=== PATIENT | male | born 1965 | race Caucasian/White ===

== ENCOUNTER 2016-09-19 18:53 | Emergency (ER) | payer SELFPAY ==
[~2016-09-19] VITALS: Ht 180.3 cm; Wt 72.6 kg
[2016-09-19 19:45] VITALS: BP 116/70
[2016-09-19] MEDS ORDERED: FLUORESCEIN SOD 1 MG TEST STRIP RIGHTEYE ONE (20:00)
[2016-09-19] MEDS ORDERED: TETRACAINE HCL 0.5% OPTH(EYE) SOLN 4ML RIGHTEYE ONE (20:00)
== END 2016-09-19 20:50 | disposition home or self-care (01) ==
LOC: ER 18:56
DX: T15.01XA Foreign body in cornea, right eye, initial encounter (principal); X58.XXXA Exposure to other specified factors, initial encounter; Y93.89 Activity, other specified; Y99.8 Other external cause status; Y92.89 Other specified places as the place of occurrence of the external cause
CPT/HCPCS: 65220

== ENCOUNTER 2017-02-10 07:18 | Inpatient (IN) | payer SELFPAY ==
[~2017-02-10] VITALS: Ht 180.3 cm; Wt 75.1 kg
[2017-02-10] MEDS ORDERED: SODIUM CHLORIDE 0.9% 1,000 ML IV ONE (07:37)
[2017-02-10] MEDS ORDERED: ASPirin 81 mg TAB PO ONE (07:45)
[2017-02-10] MEDS ORDERED: METOCLOPRAMIDE HCL 5MG/ml INJ 2ml VIAL IV ONE (07:45)
[2017-02-10] MEDS ORDERED: KETOROLAC TROMETH 30 MG/ML 1ML VIAL IV ONE (07:45)
[2017-02-10 08:35] LABS: Basophils # (auto) 0.1 uL; Basophils % (auto) 0.6 % (0.0-2.0); Eosinophils # (auto) 0.4 uL; Eosinophils % (auto) 4.3 % (0.0-7.0); Hematocrit 40.5 % (41.0-53.0); Hemoglobin 13.6 g/dL (13.5-17.5); Lymphocytes # (auto) 1.4 uL; Lymphocytes % (auto) 15.1 % (10.0-50.0); Mean Corpuscular Hemoglobin 31.5 pg (28.0-32.0); Mean Corpuscular Hgb Conc. 33.6 g/dL (32.0-36.0); Mean Corpuscular Volume 93.9 fL (80.0-100.0); Mean Platelet Volume 7.1 fL (6.9-10.8); Monocytes # (auto) 1.4 uL; Neutrophils # (auto) 6.2 uL; Nucleated Red Blood Cells % 0.1 %; Platelet Count (auto) 316 10^3/uL (140-450); Red Cell Distribution Width 14.2 % (11.8-14.3); White Blood Cell 9.5 10^3/uL (4.4-10.8)
[2017-02-10 09:05] LABS: Albumin 3.7 g/dL (3.4-5.0); Alkaline Phosphatase 70 U/L (45-117); Anion Gap 6 (5-15); Aspartate Aminotransferase 16 U/L (15-37); BUN/Creatinine Ratio 19.2; Bilirubin, Total 1.1 mg/dL (0.2-1.0); Blood Urea Nitrogen 14 mg/dL (7-18); Calcium 8.2 mg/dL (8.5-10.1); Carbon Dioxide 24 mmol/L (21-32); Chloride 109 mmol/L (98-107); GFR African American 145 mL/min; GFR Non-African American 120 mL/min; Glucose 96 mg/dL (74-106); Magnesium 2.2 mg/dL (1.6-2.6); Potassium 3.9 mmol/L (3.5-5.1); Sodium 139 mmol/L (136-145); Total Protein 7.1 g/dL (6.4-8.2)
[2017-02-10] MEDS ORDERED: MORPHINE SULF INJ 2 MG/ML SYRINGE 1ML IV PRN (11:15)
[2017-02-10] MEDS ORDERED: AZITHROMYCIN 500MG/D5W 250ML 250 ML IV ONE (11:15)
[2017-02-10] MEDS ORDERED: NICOTINE 14 MG/24HR TOPICAL PATCH TD ONE (11:15)
[2017-02-10] MEDS ORDERED: ACETAMINOPHEN 325 MG TAB PO PRN (11:15)
[2017-02-10] MEDS ORDERED: DOCUSATE SOD 100 MG CAP PO PRN (11:15)
[2017-02-10] MEDS ORDERED: NITROGLYCERIN 0.4 MG SL TAB SL PRN (11:15)
[2017-02-10] MEDS ORDERED: ONDANSETRON HCL 4 MG/2 ML VIAL IV PRN (11:15)
[2017-02-10] MEDS ORDERED: TEMAZEPAM 15 MG CAP PO PRN (11:15)
[2017-02-10] MEDS ORDERED: cefTRIAXone 1GM/50ML D5W 50 ML IV ONE (11:15)
[2017-02-10] MEDS: cefTRIAXone 1GM/50ML D5W 50 ML IV SCH (11:16)
[2017-02-10 11:21] LABS: B-Type Natriuretic Peptide 13.23 pg/mL (0-100)
[2017-02-10 11:25] LABS: Temperature: 21.9 C (20.0-25.0)
[2017-02-10] MEDS ORDERED: FAMOTIDINE 20 MG TAB PO ONE (11:30)
[2017-02-10] MEDS ORDERED: MULTIPLE VITAMIN TAB PO ONE (11:30)
[2017-02-10] MEDS: IPRATROPIUM BROM 0.5 MG/2.5ML INH SOL NEB SCH ×2 (11:39→18:15)
[2017-02-10] MEDS: ALBUTEROL SULF 2.5 MG/0.5ML(0.5%) NEB SOLN NEB SCH ×2 (11:39→18:15)
[2017-02-10 11:46] VITALS: BP 110/74
[2017-02-10 11:52] LABS: Urine RBC None Seen /hpf (0 - 3)
[2017-02-10 12:00] LABS: Urine Bilirubin Negative (Negative); Urine Blood Negative /uL (Negative); Urine Color Yellow (Yellow); Urine Glucose Normal (Normal); Urine Ketone Negative (Negative); Urine Nitrite Negative (Negative); Urine Urobilinogen Normal (Negative); Urine pH 5.5 (5.0-8.0)
[2017-02-10] MEDS: SODIUM CHLOR 0.9% PF (SALINE LOCK) 10ML VIAL IV SCH ×2 (13:26→20:43)
[2017-02-10] MEDS: HYDROcodone-ACET 5/325MG TAB PO PRN ×2 (17:01→20:37)
[2017-02-10] MEDS: MORPHINE SULF INJ 2 MG/ML SYRINGE 1ML IV PRN ×2 (19:54→20:38)
[2017-02-10] MEDS: FAMOTIDINE 20 MG TAB PO SCH (20:45)
[2017-02-10 22:00] VITALS: BP 140/85
[2017-02-10 22:15] VITALS: BP 140/85
[2017-02-11 05:00] VITALS: BP 124/86
[2017-02-11] MEDS: SODIUM CHLOR 0.9% PF (SALINE LOCK) 10ML VIAL IV SCH ×2 (05:31→10:00)
[2017-02-11 06:14] LABS: Basophils # (auto) 0.1 uL; Basophils % (auto) 0.7 % (0.0-2.0); Eosinophils # (auto) 0.1 uL; Eosinophils % (auto) 1.2 % (0.0-7.0); Hematocrit 38.7 % (41.0-53.0); Lymphocytes # (auto) 1.3 uL; Lymphocytes % (auto) 11.2 % (10.0-50.0); Mean Corpuscular Hemoglobin 31.4 pg (28.0-32.0); Mean Corpuscular Hgb Conc. 33.7 g/dL (32.0-36.0); Mean Corpuscular Volume 93.2 fL (80.0-100.0); Monocytes # (auto) 1.8 uL; Monocytes % (auto) 15.3 % (0.0-12.0); Neutrophils # (auto) 8.5 uL; Neutrophils % (auto) 71.6 % (37.0-80.0); Platelet Count (auto) 287 10^3/uL (140-450)
[2017-02-11 07:08] LABS: Albumin 3.3 g/dL (3.4-5.0); BUN/Creatinine Ratio 14.9; Bilirubin, Total 0.9 mg/dL (0.2-1.0); Calcium 8.6 mg/dL (8.5-10.1); Potassium 4.2 mmol/L (3.5-5.1)
[2017-02-11] MEDS: ALBUTEROL SULF 2.5 MG/0.5ML(0.5%) NEB SOLN NEB SCH ×3 (07:29→12:54)
[2017-02-11] MEDS: IPRATROPIUM BROM 0.5 MG/2.5ML INH SOL NEB SCH ×3 (07:29→12:54)
[2017-02-11 08:00] VITALS: BP 135/74
[2017-02-11 09:00] VITALS: BP 135/74
[2017-02-11] MEDS: FAMOTIDINE 20 MG TAB PO SCH (09:37)
[2017-02-11] MEDS: cefTRIAXone 1GM/50ML D5W 50 ML IV SCH (09:38)
[2017-02-11] MEDS ORDERED: MULTIPLE VITAMIN TAB PO SCH (10:00)
[2017-02-11] MEDS ORDERED: AZITHROMYCIN 500MG/D5W 250ML 250 ML IV SCH (10:00)
[2017-02-11] MEDS: HYDROcodone-ACET 5/325MG TAB PO PRN (11:06)
[2017-02-11] MEDS ORDERED: ALBUAER3 IN (11:27)
[2017-02-11] MEDS ORDERED: DOXY-216 PO (11:27)
[2017-02-11 12:10] VITALS: BP 135/74
== END 2017-02-11 14:20 | disposition home or self-care (01) | DRG 202 ==
LOC: ER 07:18 → EDUNIT# 07:18 → TELE 07:19 → TELE-CENTR 21:53
PROVIDERS: ADMIT Internal Medicine; ATTEND Internal Medicine
DX: J20.9 Acute bronchitis, unspecified (principal); J45.901 Unspecified asthma with (acute) exacerbation; E83.51 Hypocalcemia; D63.8 Anemia in other chronic diseases classified elsewhere; F17.210 Nicotine dependence, cigarettes, uncomplicated; R07.89 Other chest pain; R06.03 Acute respiratory distress; I20.9 Angina pectoris, unspecified
CPT/HCPCS: 36415; 71020; 80053; 80307; 81001; 83605; 83735; 83880; 84443; 84484; 85025; 85379; 87040; 93005; 94640; 96361; 96365; 96375; J0696; J1885; J2405

== ENCOUNTER 2021-10-29 18:12 | Emergency (ER) | payer MEDICAID, OTHER ==
[~2021-10-29] VITALS: Ht 180.3 cm; Wt 69.2 kg
[~2021-10-29 18:12] MED LIST: ALBUAER3 IN; DOXY-286 PO
[2021-10-29 18:15] VITALS: BP 129/79
[2021-10-29 18:42] LABS: Basophils # (auto) 0 10 ^3/uL (0-0.2); Basophils % (auto) 0.2 % (0.0-2.0); Eosinophils # (auto) 0.5 10 ^3/uL (0-0.8); Hematocrit 37.6 % (41.0-53.0); Hemoglobin 12.7 g/dL (13.5-17.5); Lymphocytes # (auto) 1.7 10 ^3/uL (0.4-5.4); Lymphocytes % (auto) 28.9 % (10.0-50.0); Mean Corpuscular Hemoglobin 30.5 pg (28.0-32.0); Mean Corpuscular Hgb Conc. 33.6 g/dL (32.0-36.0); Mean Corpuscular Volume 90.7 fL (80.0-100.0); Monocytes # (auto) 0.6 10 ^3/uL (0-1.3); Monocytes % (auto) 11.2 % (0.0-12.0); Neutrophils % (auto) 51.7 % (37.0-80.0); Red Blood Cells 4.15 10^6/uL (4.5-5.90); Red Cell Distribution Width 14.2 % (11.8-14.3); White Blood Cell 5.7 10^3/uL (4.4-10.8)
[2021-10-29 18:59] LABS: Albumin 3.8 g/dL (3.4-5.0); Calcium 9.2 mg/dL (8.5-10.1); Potassium 3.7 mmol/L (3.5-5.1)
[2021-10-29 19:02] LABS: BUN/Creatinine Ratio 24.8
[2021-10-29 19:05] LABS: Bilirubin, Total 0.9 mg/dL (0.2-1.0); Total Protein 7.3 g/dL (6.4-8.2)
[2021-10-29] MEDS ORDERED: KETOROLAC TROMETH 30 MG/ML 1ML VIAL IM ONE (21:00)
[2021-10-29] MEDS ORDERED: IOHEXOL 300 MG/ML 100ML BOTTLE IJ ONE (22:10)
== END 2021-10-29 23:16 | disposition home or self-care (01) ==
LOC: ER 18:12
DX: N39.0 Urinary tract infection, site not specified (principal); F17.200 Nicotine dependence, unspecified, uncomplicated
CPT/HCPCS: 36415; 74177; 80053; 83605; 83690; 85025; 93005; 96372; 99285; J1885; Q9967

== ENCOUNTER 2022-01-10 13:04 | Emergency (ER) | payer OTHER ==
[~2022-01-10] VITALS: Ht 180.3 cm; Wt 159.0 kg
[2022-01-10 14:12] VITALS: BP 125/79
[2022-01-10 17:23] LABS: Basophils # (auto) 0.1 10 ^3/uL (0-0.2); Basophils % (auto) 1.3 % (0.0-2.0); Eosinophils # (auto) 0.4 10 ^3/uL (0-0.8); Eosinophils % (auto) 5.4 % (0.0-7.0); Hematocrit 39.3 % (41.0-53.0); Lymphocytes # (auto) 2.1 10 ^3/uL (0.4-5.4); Lymphocytes % (auto) 28.4 % (10.0-50.0); Mean Corpuscular Hemoglobin 30.2 pg (28.0-32.0); Mean Corpuscular Hgb Conc. 33.1 g/dL (32.0-36.0); Mean Corpuscular Volume 91.5 fL (80.0-100.0); Monocytes # (auto) 0.9 10 ^3/uL (0-1.3); Monocytes % (auto) 12.3 % (0.0-12.0); Neutrophils # (auto) 3.8 10 ^3/uL (1.6-8.6); Neutrophils % (auto) 52.6 % (37.0-80.0); Nucleated Red Blood Cells % 0.1 %; Red Blood Cells 4.29 10^6/uL (4.5-5.90); Red Cell Distribution Width 14.3 % (11.8-14.3); White Blood Cell 7.2 10^3/uL (4.4-10.8)
[2022-01-10 17:43] LABS: Calcium 9.2 mg/dL (8.5-10.1); Magnesium 2.3 mg/dL (1.6-2.6); Potassium 3.6 mmol/L (3.5-5.1)
[2022-01-10 17:46] LABS: Bilirubin, Total 1.6 mg/dL (0.2-1.0); Total Protein 7.5 g/dL (6.4-8.2)
[2022-01-10] MEDS ORDERED: IODIXANOL 320MG/ML 100ML BTL IV ONE (19:25)
[2022-01-10] MEDS ORDERED: NAP500T PO (19:35)
== END 2022-01-10 22:34 | disposition home or self-care (01) ==
LOC: ER 13:04 → EDBD 13:04 → ER 22:34
DX: K40.20 Bilateral inguinal hernia, without obstruction or gangrene, not specified as recurrent (principal); K76.0 Fatty (change of) liver, not elsewhere classified; N43.3 Hydrocele, unspecified; F17.200 Nicotine dependence, unspecified, uncomplicated; F12.10 Cannabis abuse, uncomplicated; E78.5 Hyperlipidemia, unspecified
CPT/HCPCS: 36415; 74177; 80053; 83690; 83735; 85025; 99285; Q9967

== ENCOUNTER → 2023-03-09 | Outpatient (CLI) | payer OTHER ==
[~2023-03-09] MED LIST changes: +NAP500T PO
== END | disposition home or self-care (01) ==
LOC: XYW 07:37
PROVIDERS: ATTEND Internal Medicine
DX: R07.9 Chest pain, unspecified (principal); I10 Essential (primary) hypertension; E78.00 Pure hypercholesterolemia, unspecified; K21.9 Gastro-esophageal reflux disease without esophagitis; F17.200 Nicotine dependence, unspecified, uncomplicated; Z68.25 Body mass index [BMI] 25.0-25.9, adult
CPT/HCPCS: 78452; 93017; A9500